=== PATIENT | male | born 1935 | race African-American/Black ===

== ENCOUNTER 2020-10-02 19:18 | Emergency (ER) | payer MEDICARE, BC ==
[~2020-10-02] VITALS: Ht 172.7 cm; Wt 90.3 kg
[2020-10-02] MEDS ORDERED: FUROSEMIDE20 M1 PO (19:58)
[2020-10-02] MEDS ORDERED: LANSOPRAZOLE30 MG PO (19:58)
[2020-10-02] MEDS ORDERED: LISINOPRIL5 MG PO (19:58)
[2020-10-02] MEDS ORDERED: NITROGLYCERIN0.4 MG SL (19:58)
[2020-10-02] MEDS ORDERED: ECONOPRED PLUS10 M1 OPH (19:59)
[2020-10-02] MEDS ORDERED: GEMFIBROZIL600 MG PO (19:59)
[2020-10-02] MEDS ORDERED: METOPROLOL SUCC25 M2 PO (19:59)
[2020-10-02] MEDS ORDERED: GOOD NEIGHBOR L10 MG PO (19:59)
[2020-10-02 20:23] LABS: HEMATOCRIT 45.1 % (42.0-52.0); MEAN CELL VOLUME 97.6 fl (80.0-94.0); MEAN CORPUSCULAR HGB CONC 31.7 g/dl (33.0-37.0); MEAN PLATELET VOLUME 9.8 fl (9.6-12.3); NUCLEATED RED BLOOD CELL 0.2 % (0.0-0.0); PLATELET COUNT AUTOMATED 195 10*3/uL (130-400); RED BLOOD COUNT 4.62 10*6/uL (4.50-5.90); RED CELL DISTRI WIDTH 15.9 % (0-14.5); WHITE BLOOD COUNT 15.2 10*3/uL (4.8-10.8)
[2020-10-02 20:39] LABS: INTERNATIONAL NORM RATIO 1.1 (2.0-3.5)
[2020-10-02 20:40] LABS: ALBUMIN 2.8 gm/dl (3.1-4.5); CREATININE 2.51 mg/dL (0.70-1.30); POTASSIUM 4.4 mmol/L (3.5-5.1); TOTAL PROTEIN 7.1 gm/dL (6.4-8.2)
[2020-10-02 20:45] LABS: ATYPICAL LYMPHS 2 % (0-0); TOTAL CELLS COUNTED 100 #CELLS
[2020-10-02 20:46] LABS: BURR CELLS MODERATE; PLATELET SUFFICIENCY NORMAL (NORMAL)
[2020-10-02 21:05] LABS: TROPONIN I 0.122 ng/ml (<0.045)
== END 2020-10-02 22:20 | disposition short-term general hospital (02) ==
LOC: ED 19:18
PROVIDERS: Emergency Medicine
DX: I46.9 Cardiac arrest, cause unspecified (principal); Z79.899 Other long term (current) drug therapy